=== PATIENT | male | born 1960 | race Caucasian/White ===

== ENCOUNTER → 2018-01-22 | Outpatient (CLI) | payer OTHER ==
[~2018-01-22] MED LIST: AMLODIPINE-VAL1 EAC2 PO; ASPIRIN EC325 MG PO; ATORVASTATIN CA80 MG PO; EFFIENT10 MG PO; LISINOPRIL2.5 MG PO; LOPRESSOR25 MG PO; NITROSTAT0.4 MG SL
== END | disposition home or self-care (01) ==
LOC: NUC 09:56
DX: M47.892 Other spondylosis, cervical region (principal); M19.032 Primary osteoarthritis, left wrist; M19.031 Primary osteoarthritis, right wrist; M17.0 Bilateral primary osteoarthritis of knee; M19.072 Primary osteoarthritis, left ankle and foot; M19.071 Primary osteoarthritis, right ankle and foot; M89.8X8 Other specified disorders of bone, other site; R93.7 Abnormal findings on diagnostic imaging of other parts of musculoskeletal system
CPT/HCPCS: 78306; A9503